=== PATIENT | female | born 1980 | race Caucasian/White ===

== ENCOUNTER 2016-12-10 23:00 | Inpatient (IN) | payer OTHER ==
--- NOTE | ~2016-12-10 | HP ---
Unit #: [id number] #: [id number] Patient: INA SCHROEDER [id number] [place] [address] [id number] I MR#: [id number] NAME: INA SCHROEDER ROOM: [facility] Age: 35 Sex: F Admission Date: 12/10/2016 : 1980 Attending Physician: Nick Shelton M.D. Admitting Physician: Nick Shelton M.D. Primary Care Physician: Primary Care Physician No HISTORY AND PHYSICAL HISTORY OF PRESENT ILLNESS Ina is a 35 year old admitted to [address] [place] [address] because of her abuse of alcohol. PAST MEDICAL HISTORY 1. Long history of alcohol abuse. 2. Morbid obesity. 3. History of goiter. a. Partial thyroidectomy. 4. Hypothyroidism. PAST SURGICAL HISTORY As above. ALLERGIES Penicillin. SOCIAL HISTORY She smokes 1 pack per day. Drinks up to 30 beers on a daily basis. Admits to using marijuana frequently. FAMILY HISTORY Noncontributory. REVIEW OF SYSTEMS CONSTITUTIONAL: No fever or chills. HEENT: Denies any sore throat, ear pain or runny nose. CARDIOVASCULAR: Denies chest pain, irregular heart rhythm or palpitations. CHEST: Denies shortness of breath or cough. No hemoptysis. GASTROINTESTINAL: Denies nausea, vomiting, diarrhea or chronic constipation. ENDOCRINE: Denies history of increased thirst or urination. No recent significant weight loss or gain. GENITOURINARY: Denies dysuria, frequency, or hematuria. SKIN: Denies any rashes. HEMATOLOGIC: Denies history of increased bleeding or bruising. MUSCULOSKELETAL: Denies any hot, swollen joints. No generalized muscle pain. NEUROLOGIC: Denies problems with vision or speech. No frequent, severe headaches. No numbness, tingling or weakness in any extremities. Denies loss of bladder or bowel control. CURRENT MEDICATIONS Unit #: [id number] #: [id number] Patient: INA SCHROEDER 1. Detox protocol. 2. Amitriptyline 10 mg q.h.s. 3. Ropinirole 1 mg q.h.s. 4. Synthroid 0.1 mg daily. 5. Claritin 10 mg daily. 6. Paxil 20 mg b.i.d. 7. Nadolol 20 mg b.i.d. 8. Lasix 40 mg daily. PHYSICAL EXAMINATION GENERAL: Alert, morbidly obese, in no apparent distress. VITAL SIGNS: Blood pressure 144/74, heart rate 80, respirations 16, temperature 98.6. WEIGHT: 334. HEIGHT: 5 feet 10 inches. SKIN: Warm and dry without rash or lesion. HEENT: Normocephalic. TMs not viewed. Oral and nasal passages clear. Conjunctivae clear. PERRLA. EOMs intact. NECK: Supple without lymphadenopathy or thyromegaly. HEART: Regular rate and rhythm without murmur. LUNGS: Clear. ABDOMEN: Soft, nontender. : Not done. EXTREMITIES: No evidence of cyanosis, clubbing or edema. Moves all without focal deficit. NEUROLOGICAL: Grossly within normal limits. Cranial Nerves: II: Visual macario are intact. III, IV AND : Extraocular movements are intact. Pupils are equal, round and reactive to light. V: Facial sensation is grossly normal. VII: Facial movements and expression are normal. VIII: Auditory acuity grossly intact. IX, X: Uvula is midline. Phonation is normal. XI: Patient shrugs shoulders and turns head normally. XII: Tongue protrudes in the midline. Sensory and Motor Function: Sensory and motor sensation is grossly normal. Motor: moves all extremities well. Coordination: Gait is normal. Deep Tendon Reflexes: Intact. IMPRESSION Psychiatric admission. RECOMMENDATIONS PSYCHIATRIC: Per psychiatrist. MEDICAL: See no contraindications to participate in facility's activities. MEDICAL PROGNOSIS Good. MEDICAL CONDITION Stable. Dictated by... Gala Milian P.A.-C. for Reg Wilcox M.D. Unit #: [id number] #: [id number] Patient: INA SCHROEDER EDISON/gaudencio TD: 12/11/2016 22:50 JOB #: [id number] HISTORY AND PHYSICAL X Gala Milian HISTORY AND PHYSICAL
--- NOTE | ~2016-12-10 | PN ---
Unit #: [id number] #: [id number] Patient: INA SCHROEDER [id number] [facility] [address] [place] [address] [id number] I MR#: [id number] NAME: INA SCHROEDER ROOM: [facility] Age: 35 Sex: F Admission Date: 12/10/2016 : 1980 Attending Physician: Nick Shelton M.D. Admitting Physician: Nikc Shelton M.D. Primary Care Physician: Primary Care Physician Corrine CARRILLO NOTES DATE OF SERVICE: 12/11/2016 DISCUSSION Ms. Ina Schroeder is a 35-year-old female, seen on 12/11/2016. The patient was withdrawn, isolative, flat affect. The patient was anxious, nervous, guarded, paranoid. The patient's vital signs; temperature 97.2, respirations 17, blood pressure is 145/92. Complete review of systems is unremarkable. MENTAL STATUS EXAMINATION General appearance; the patient is moderately obese, dressed casually. Attention span and concentration, poor. Oriented in place and person. Mood and affect were sad and dysphoric. Speech, monotone. Thought process, concrete. The patient denied any thoughts of harming self or others, but guarded, paranoid. Recent and remote memory, poor. Insight and judgment, poor. DIAGNOSES 1. Alcohol use disorder, severe. 2. Cannabis abuse disorder, severe. 3. Mood disorder, not otherwise specified. ASSESSMENT AND PLAN Advised to continue with current medication and therapeutic protocol. We will monitor response to medication and make further adjustment of medication. Dictated by... Madeleine Quintero/samantha TD: 12/11/2016 18:42 JOB #: [id number] Unit #: [id number] #: [id number] Patient: INA SCHROEDER ELISSAHENRY PROGRESS NOTES X Nick Shelton MD PROGRESS NOTE
--- NOTE | ~2016-12-10 | DS ---
Unit #: [id number] #: [id number] Patient: TESS SCHROEDER [id number] [place] [address] [id number] I MR#: [id number] NAME: TESS SCHROEDER ROOM: [facility] Age: 35 Sex: F Admission Date: 12/10/2016 : 1980 Discharge Date: 12/13/2016 Attending Physician: Nick Shelton M.D. Primary Care Physician: Primary Care Physician No DISCHARGE SUMMARY REASON FOR ADMISSION Alcohol abuse and depression. DIAGNOSTIC STUDIES LABORATORY RESULTS: Remarkable for potassium 3.4 and albumin 3.3. HOSPITAL COURSE The patient was admitted to inpatient unit on . The patient was treated from 12/10/2016 to 12/12/2016 and responded well. The patient was treated with detox protocol, detox monitoring, group therapy, individual therapy, and medication management. Subsequently, the patient was discharged with a plan to follow up in outpatient program. DISCHARGE MEDICATIONS The patient is on Lasix 40 mg daily for hypertension, Requip 1 mg at bedtime for restlessness of legs, Corgard 20 mg b.i.d. for hypertension, Paxil 20 mg b.i.d. for depression, Elavil 10 mg daily for anxiety, Claritin 10 mg daily for allergies, Protonix 40 mg daily for GERD symptom, and Synthroid 0.1 mg daily for hypothyroidism. DISCHARGE DIAGNOSES Psychiatric: Alcohol use disorder, severe, F10.20; cannabis abuse disorder, moderate; and psychosis, not otherwise specified. Secondary diagnosis: Deferred. Medical diagnoses: Obesity, chronic back pain, chronic hip pain, and restless legs syndrome. Stressors: Psychosocial stressors. DISCHARGE INSTRUCTIONS The patient to follow up in outpatient clinic as per mental health social worker. CONDITION ON DISCHARGE The patient was pleasant and cooperative. Denied any psychotic symptom or any suicidal ideation. PROGNOSIS Guarded. DIET AND ACTIVITY As tolerated. Unit #: [id number] #: [id number] Patient: TESS SCHROEDER Dictated by... Nick Shelton M.D. SZC/ann-mariel TD: 12/13/2016 20:07 JOB #: [id number] DISCHARGE SUMMARY X Nick Shelton MD DISCHARGE SUMMARY
--- NOTE | ~2016-12-10 | PA ---
Unit #: [id number] #: [id number] Patient: TESS SCHROEDER [id number] [facility] [address] [place] [address] [id number] I MR#: [id number] NAME: TESS SCHROEDER ROOM: [facility] Age: 35 Sex: F Admission Date: 12/10/2016 : 1980 Date of Assessment: 12/11/2016 Attending Physician: Nick Shelton M.D. Admitting Physician: Nick Shelton M.D. Primary Care Physician: Primary Care Physician No PSYCHIATRIC ASSESSMENT INFORMANTS The patient reliability, fair informant and chart reliability, good. CHIEF COMPLAINT Detox from alcohol. HISTORY OF PRESENT ILLNESS Ms. Buckley is a 35-year-old female, seen on . The patient presented with the above-mentioned complaint. The patient lives at home with fiance; son, 16; daughter, 12; son, 9. The patient presented for detox. The patient currently denied any suicidal or homicidal ideation or any psychotic symptom. The patient reported auditory hallucination and hearing noises at times. The patient reports that she smells perfume on a woman who in the house. The patient reports that she drinks 30 to 60 beers a day. The patient has not went more than one day without alcohol last year. The patient reports that last drink was yesterday, 24 beers. The patient reports she smokes 2 to 5 joints per day; last use yesterday, 3 joints. The patient scored 21 on CIWA score. The patient needed inpatient admission at this time for psychiatric stabilization. PAST PSYCHIATRIC HISTORY Remarkable for history of outpatient treatment, details unknown at this time. FAMILY AND SOCIAL HISTORY The patient lives with her family, has a good support system. No history of any abuse. MEDICAL HISTORY Remarkable for obesity, restless legs, and chronic hip and back pain. MEDICATION HISTORY None. ALLERGIES No known drug allergies. SUBSTANCE ABUSE HISTORY The patient reported tobacco use, age of onset 9; alcohol, age of onset 26; and marijuana, age of onset 12. The patient reported drinking 30 to 60 beers. No history of any HIV, hepatitis, or IV drug use. No history of any blackouts, but currently reporting tremor, poor appetite, diarrhea, and hallucination. Unit #: [id number] #: [id number] Patient: TESS SCHROEDER REVIEW OF SYSTEMS HEENT: Eyes, clear. Ears, nose, mouth, and throat; clear. CARDIOVASCULAR: Unremarkable. RESPIRATORY: Unremarkable. GI: Unremarkable. : Unremarkable. SKIN: Unremarkable. LYMPH NODE: Unremarkable. NEUROLOGIC: Unremarkable. ENDOCRINE: Unremarkable. HEMATOLOGIC: Unremarkable. ALLERGIC/IMMUNOLOGIC: Unremarkable. MUSCULOSKELETAL: Muscle strength and tone, no atrophy or abnormal movement. Gait normal. MENTAL STATUS EXAMINATION CONSTITUTIONAL: Measurement of vital signs; temperature 97.2, heart rate 97, respiratory rate 17, blood pressure 144/75, height 5 feet 10 inches, and weight 334 pounds. GENERAL APPEARANCE: The patient dressed casually. The patient did not show any facial deformity. MUSCULOSKELETAL: Please see above. PSYCHIATRIC EXAMINATION Description of speech; regular rate, normal volume, and normal articulation. Description of thought process, goal directed. Description of association, circumstantial. Description of abnormal psychotic thinking; reported hallucination as mentioned above, mood lability, sad, depressed, and substance abuse. Description of the patient's judgment: Concerning everyday activity, poor. Social situation, poor. Concerning psychiatric condition, poor. Complete mental status examination; oriented in time, place, and person. Recent and remote memory, fair. Attention span and concentration, fair. Language, able to name object and repeat phrases. Fund of knowledge, aware of current event and passive vocabulary intact. Mood and affect, sad and dysphoric. Insight and judgment, fair to poor. ASSETS AND LIABILITIES Assets, the patient is articulate and able to take care of her ADL. Liability, history of substance abuse and depression. ADMITTING DIAGNOSES Psychiatric: Alcohol use disorder, severe, F10.20; cannabis abuse, moderate to severe, F12.20; and psychosis, not otherwise specified, F29.0. Secondary diagnosis: Deferred. Medical diagnoses: Obesity, chronic back pain, hip pain, and restless legs syndrome. Stressors: Psychosocial stressors. PSYCHIATRIC PLAN AND TREATMENT GOAL AND DISCHARGE PLAN 1. Advised to admit the patient on the inpatient unit. Provide safe, supportive, and structured environment. 2. Ordered labs; CBC, CMP, UA, and UDS. Unit #: [id number] #: [id number] Patient: TESS SCHROEDER 3. Detox protocol and detox monitoring. 4. Plan to continue with current treatment, group therapy, individual therapy, and medication management. If needed, consider medication for psychosis and depression. The patient to be monitored closely. TREATMENT GOAL To attain euthymic mood, gain insight into her problem, and learn coping skills. DISCHARGE PLAN Plan to stabilize the patient and consider followup in outpatient program. ESTIMATED LENGTH OF STAY 3 to 5 days. Dictated by... Nick Shelton M.D. JAM/samantha TD: 12/11/2016 19:01 JOB #: [id number] PSYCHIATRIC ASSESSMENT X Nick Shelton MD PSYCHIATRIC ASSESSMENT
--- NOTE | ~2016-12-10 | PN ---
Unit #: [id number] #: [id number] Patient: INA SCHROEDER [id number] [facility] [address] [place] [address] [id number] I MR#: [id number] NAME: INA SCHROEDER ROOM: [facility] Age: 35 Sex: F Admission Date: 12/10/2016 : 1980 Attending Physician: Nick Shelton M.D. Admitting Physician: Nick Shelton M.D. Primary Care Physician: Primary Care Physician Corrine BONILLA PROGRESS NOTES DATE OF SERVICE: 12/12/2016 DISCUSSION Ina Schroeder is a 35-year-old female, seen on 12/12/2016. The patient interviewed, chart reviewed, and obtained information from nursing staff. The patient was compliant and cooperative. Mood is sad, dysphoric, flat affect, guarded, but reports making progress. REVIEW OF SYSTEMS Complete review of systems unremarkable. MENTAL STATUS EXAMINATION General appearance, the patient dressed casually, withdrawn, isolative, guarded. Attention span and concentration, fair. Oriented in place and person. Mood and affect, sad, and depressed. Speech, monotone. Thought process, concrete. The patient denied any thoughts of harming self or others, but guarded, withdrawn, isolative. Recent and remote memory, poor. Insight and judgment, poor. Vital signs, temperature 98.2, pulse 90, respirations 21, blood pressure 120/60. Recent and remote memory, poor. Insight and judgment, poor. DIAGNOSES 1. Mood disorder, not otherwise specified. 2. Alcohol use disorder, severe. ASSESSMENT AND PLAN Advised to continue with current medication and therapeutic protocol. We will monitor response to medication and make further adjustment of medication. Dictated by... Madeleine Quintero/samantha TD: 12/13/2016 05:13 JOB #: [id number] Unit #: [id number] #: [id number] Patient: INA SCHROEDER PROGRESS NOTES X Nick Shelton MD PROGRESS NOTE
[2016-12-11 10:17] LABS: BASOPHIL% 0.1 % (0-2.5); EOSINOPHIL# 0.2 X10e3 (0-0.7); EOSINOPHIL% 2.5 % (0.0-7.0); HEMATOCRIT 37.3 % (35.0-45.0); HEMOGLOBIN 12.4 gm/dL (12.0-16.0); LYMPHOCYTE# 2.3 X10e3 (1.0-3.5); LYMPHOCYTE% 38.4 % (17.0-45.0); MEAN CORPUSCULAR HEMOGLOBIN 30.6 PG (28-34); MEAN CORPUSCULAR HGB CONC 33.3 g/dL (30-36); MEAN PLATELET VOLUME 9.6 FL (6.5-11.5); MONOCYTE# 0.4 X10e3 (0-1.0); MONOCYTE% 5.8 % (3.0-12.0); NEUTROPHIL# 3.2 X10e3 (1.5-7.1); NEUTROPHIL% 53.2 % (40-75); PLATELET COUNT 154 X10e3 (140-420); RED BLOOD COUNT 4.05 X10e (3.90-5.30); RED CELL DISTRIBUTION WIDTH 14.4 % (11.0-15.5); WHITE BLOOD COUNT 6.1 X10e3 (4.0-10.5)
[2016-12-11 10:26] LABS: DIFF IND NO
[2016-12-11 10:33] LABS: ALBUMIN SERUM 3.3 g/dL (3.5-5.0); ALKALINE PHOSPHATASE 86 U/L (32-92); ALT (SGPT) 25 U/L (10-40); AST (SGOT) 26 U/L (10-42); BILIRUBIN,TOTAL 0.4 mg/dL (0.2-2.0); BLOOD UREA NITROGEN 9 mg/dL (9-23); CALCIUM SERUM 8.9 mg/dL (8.4-10.2); CARBON DIOXIDE 28 mmol/L (22-31); CHLORIDE 106 mmol/L (100-111); CREATININE SERUM 0.6 mg/dL (0.6-1.4); GLOM FILT RATE Estimated ABOVE60 mL/min (>60); GLUCOSE FASTING 99 mg/dL (70-110); POTASSIUM 3.4 mmol/L (3.5-5.1); PROTEIN TOTAL SERUM 6.5 g/dL (6.0-8.3); SODIUM 140 mmol/L (135-145)
== END 2016-12-13 01:42 | disposition home or self-care (01) | DRG 897 ==
LOC: P1S 23:00
PROVIDERS: Psychiatry & Neurology Psychiatry
PROC: HZ2ZZZZ Detoxification Services for Substance Abuse Treatment (ICD-10-PCS; principal; 2016-12-10)
DX: F10.20 Alcohol dependence, uncomplicated (principal); E66.01 Morbid (severe) obesity due to excess calories; F12.20 Cannabis dependence, uncomplicated; E03.9 Hypothyroidism, unspecified; F17.210 Nicotine dependence, cigarettes, uncomplicated
CPT/HCPCS: 80053; 85025; 86592

== ENCOUNTER 2017-05-18 20:16 | Inpatient (IN) | payer OTHER ==
[~2017-05-18] VITALS: Ht 172.7 cm; Wt 171.5 kg
--- NOTE | ~2017-05-18 | PN ---
Unit #: [id number] #: [id number] Patient: INA SCHROEDER [id number] [facility] [address] [place] [address] [id number] MR#: [id number] NAME: INA SCHROEDER ROOM: [facility] Age: 36 Sex: F Admission Date: 05/19/2017 : 1980 Attending Physician: Nick Shelton M.D. Admitting Physician: Nick Shelton M.D. Primary Care Physician: Primary Care Physician Corrine BONILLA PROGRESS NOTES DATE 05/20/2017 DISCUSSION Ina Schroeder is a 36-year-old female, seen on 05/20/2017. The patient interviewed, chart reviewed, and obtained information from the nursing staff. The patient was compliant and cooperative. Mood labile. The patient reports feeling better. Still having detox symptoms. REVIEW OF SYSTEMS Complete review of systems unremarkable. MENTAL STATUS EXAMINATION General appearance: Patient dressed casually. Attention span and concentration, fair. Oriented in time, place, and person. Mood and affect, labile. Speech, monotone. Thought process, concrete, sad, depressed, withdrawn, isolative. Recent and remote memory, poor. Insight and judgment, poor. DIAGNOSES 1. Alcohol use disorder, severe. 2. Sedative-hypnotic use disorder, severe. 3. Cannabis abuse disorder, severe. 4. Mood disorder, NOS. ASSESSMENT/PLAN Advised to continue with the current medication and therapeutic protocol, and if needed consider further adjustment of medication. Dictated by... Madeleine Quintero/swapna TD: 05/21/2017 05:42 JOB #: [id number] Unit #: [id number] #: [id number] Patient: INA SCHROEDER PROGRESS NOTES Page 1 of 1 X Nick Shelton MD PROGRESS NOTE
--- NOTE | ~2017-05-18 | PA ---
Unit #: [id number] #: [id number] Patient: INA BENNETT [id number] [facility] [address] [place] [address] [id number] MR#: [id number] NAME: INA BENNETT ROOM: [facility] Age: 36 Sex: F Admission Date: 05/19/2017 : 1980 Date of Assessment: Attending Physician: Nick Shelton M.D. Admitting Physician: Nick Shelton M.D. Primary Care Physician: Primary Care Physician No PSYCHIATRIC ASSESSMENT INFORMANTS The patient reliability, fair informant and chart reliability, good. CHIEF COMPLAINT Here for detox. HISTORY OF PRESENT ILLNESS Ms. Ina Bennett is a 36-year-old female, presented with the above-mentioned complaint. The patient reports that she lives at home with stiven's son, 16; daughter, 13, and son, 10. The patient reports she has been tired of life and also has been court ordered for a 30-day program due to DUI and possession of contraband. The patient reported that she has been drinking 36 to 40 beers for the last year. The patient reported brother . The patient reported that the last drink was 20 to 25 beers last night. The patient reported being prescribed 3 mg of Klonopin per day. For the last 3 years, abusing medication. In the last 6 months, the patient reported that she has been taking 6 mg a day. The patient also reported smoking marijuana 5 times a day, half a pack of cigarette. The patient currently scored 13 on the CIWA score. Restless, anxious, sweaty, and tremors. Denied any thoughts or plans to harm self or others. Denied any hallucination. Needing inpatient admission at this time for psychiatric stabilization. PAST PSYCHIATRIC HISTORY Remarkable for history of detox at [facility] in 2017 and inpatient at [facility]. FAMILY HISTORY AND SOCIAL HISTORY The patient has a good support system. No history of abuse. Family psychiatric illness is remarkable for history of addiction in brother, mother, and father. History of legal problems, currently on probation until 2019 due to DUI and possession of contraband. MEDICAL HISTORY Remarkable for morbid obesity, hypertension, and back problems. MEDICATION HISTORY None. ALLERGIES No known drug allergies. SUBSTANCE ABUSE HISTORY Unit #: [id number] #: [id number] Patient: INA BENNETT Tobacco use, age of onset 9; alcohol, age of onset 20; marijuana, age of onset 12; benzodiazepine, age of onset 33. Longest period of sobriety 1 day. Last period of sobriety a week ago. The patient reported history of withdrawal symptoms such as nervousness, restlessness, sleep problem, and tremor. Denied any use of IV drug use or blackouts. REVIEW OF SYSTEMS HEENT: Eyes, clear. Ears, nose, mouth, and throat; clear. CARDIOVASCULAR: Unremarkable. RESPIRATORY: Unremarkable. GI: Unremarkable. : Unremarkable. SKIN: Unremarkable. LYMPH NODE: Unremarkable. NEUROLOGIC: Unremarkable. ENDOCRINE: Unremarkable. HEMATOLOGIC: Unremarkable. ALLERGIC/IMMUNOLOGIC: Unremarkable. MUSCULOSKELETAL: Muscle strength and tone, no atrophy or abnormal movement. Gait normal. MENTAL STATUS EXAMINATION CONSTITUTIONAL: Measurement of vital signs; temperature 98.6, heart rate 85, respiratory rate 16, and blood pressure 109/73. Height 5 feet 8 inches and weight 378 pounds. GENERAL APPEARANCE: The patient dressed casually. The patient did not show any facial deformity. MUSCULOSKELETAL: Please see above. PSYCHIATRIC EXAMINATION Description of speech; slow in volume and rate. Sleepy and drowsy. Description of the patient's thought process, goal directed. Description of association, intact. Description of abnormal psychotic thinking; the patient denied any hallucination or delusions, but depression and substance abuse. Description of the patient's judgment: Concerning everyday activity, poor. Social situation, poor. Concerning psychiatric condition, poor. Complete mental status examination; oriented in time, place, and person. Recent and remote memory, fair. Attention span and concentration, fair. Language, able to name object and repeat phrases. Fund of knowledge, aware of current event and passive vocabulary intact. Mood and affect, sad and dysphoric. Insight and judgment, fair to poor. ASSETS AND LIABILITIES Assets, the patient is articulate and able to take care of her ADL. Liability, history of depression and substance abuse. ADMITTING DIAGNOSES Psychiatric: Alcohol use disorder, severe, F10.20; sedative hypnotic use disorder, severe, F13.20; cannabis abuse disorder, moderate, F12.20; and mood disorder, not otherwise specified, F32.9. Secondary diagnosis: Deferred. Medical diagnoses: Obesity, chronic back pain, chronic hip pain, and restless legs syndrome. Unit #: [id number] #: [id number] Patient: INA BENNETT Stressors: Psychosocial stressors. PSYCHIATRIC PLAN AND TREATMENT GOAL AND DISCHARGE PLAN 1. Advised to admit the patient on the inpatient unit. Provide safe, supportive, and structured environment. 2. Ordered labs; CBC, CMP, UA, and UDS. 3. Detox protocol and detox monitoring. If needed, consider a trial of SSRI. The patient to attend all the programing, group therapy, individual therapy, and chemical dependency group. Treatment goal to attain euthymic mood, gain insight into her problem, and learn coping skills. DISCHARGE PLAN Plan to stabilize the patient and consider followup in outpatient program. ESTIMATED LENGTH OF STAY 5 days. Dictated by... Nick Shelton M.D. JAM/samantha TD: 05/19/2017 16:09 JOB #: [id number] PSYCHIATRIC ASSESSMENT Page 1 of 1 X Nick Shelton MD X PSYCHIATRIC ASSESSMENT
--- NOTE | ~2017-05-18 | HP ---
Unit #: [id number] #: [id number] Patient: INA SCHROEDER [id number] [place] [address] [id number] MR#: [id number] NAME: INA SCHROEDER ROOM: [facility] Age: 36 Sex: F Admission Date: 05/19/2017 : 1980 Attending Physician: Nick Shelton M.D. Admitting Physician: Nick Shelton M.D. Primary Care Physician: Primary Care Physician No HISTORY AND PHYSICAL HISTORY OF PRESENT ILLNESS Ina is a 36 year old admitted to [facility] because of her polysubstance abuse which includes alcohol and benzodiazepines. PAST MEDICAL HISTORY 1. Long history of alcohol abuse. 2. History of illicit substance abuse to include benzodiazepines. 3. Morbid obesity. 4. Hypothyroidism. 5. History of goiter. a. Partial thyroidectomy. PAST SURGICAL HISTORY 1. As above. 2. Tubal ligation. ALLERGIES Penicillin. SOCIAL HISTORY Smokes less than 1 pack per day. Drinks a case of beer on a daily basis. Admits to abusing benzodiazepines. FAMILY HISTORY Medically noncontributory. REVIEW OF SYSTEMS CONSTITUTIONAL: No fever or chills. HEENT: Denies any sore throat, ear pain or runny nose. CARDIOVASCULAR: Denies chest pain, irregular heart rhythm or palpitations. CHEST: Denies shortness of breath or cough. No hemoptysis. GASTROINTESTINAL: Denies nausea, vomiting, diarrhea or chronic constipation. ENDOCRINE: Denies history of increased thirst or urination. No recent significant weight loss or gain. GENITOURINARY: Denies dysuria, frequency, or hematuria. SKIN: Denies any rashes. HEMATOLOGIC: Denies history of increased bleeding or bruising. MUSCULOSKELETAL: Denies any hot, swollen joints. No generalized muscle pain. NEUROLOGIC: Denies problems with vision or speech. No frequent, severe headaches. No numbness, tingling or weakness in any extremities. Denies loss of bladder or bowel control. Unit #: [id number] #: [id number] Patient: INA SCHROEDER CURRENT MEDICATIONS 1. Detox protocol. 2. Paxil 20 mg daily. 3. Methocarbamol 750 mg daily. 4. Ropinirole 1 mg q.h.s. 5. Nadolol 20 mg b.i.d. 6. BuSpar 5 mg b.i.d. 7. Lasix 40 mg daily. 8. Synthroid 0.125 mg daily. PHYSICAL EXAMINATION GENERAL: Alert, morbidly obese, in no apparent distress. VITAL SIGNS: Blood pressure 110/72, heart rate 80, respirations 16, temperature 98.6. WEIGHT: 378. HEIGHT: 5 feet 8 inches. SKIN: Warm and dry without rash or lesion. HEENT: Normocephalic. TMs not viewed. Oral and nasal passages clear. Conjunctivae clear. PERRLA. EOMs intact. NECK: Supple without lymphadenopathy or thyromegaly. HEART: Regular rate and rhythm without murmur. LUNGS: Clear. ABDOMEN: Soft, nontender. : Not done. EXTREMITIES: No evidence of cyanosis, clubbing or edema. Moves all without focal deficit. NEUROLOGICAL: Grossly within normal limits. Cranial Nerves: II: Visual macario are intact. III, IV AND : Extraocular movements are intact. Pupils are equal, round and reactive to light. V: Facial sensation is grossly normal. VII: Facial movements and expression are normal. VIII: Auditory acuity grossly intact. IX, X: Uvula is midline. Phonation is normal. XI: Patient shrugs shoulders and turns head normally. XII: Tongue protrudes in the midline. Sensory and Motor Function: Sensory and motor sensation is grossly normal. Motor: moves all extremities well. Coordination: Gait is normal. Deep Tendon Reflexes: Intact. IMPRESSION Psychiatric admission. RECOMMENDATIONS PSYCHIATRIC: Per psychiatrist. MEDICAL: 1. See no contraindication to participate in facility's activities. 2. Detox per protocol. 3. Check TSH. MEDICAL PROGNOSIS Good. MEDICAL CONDITION Stable. Unit #: [id number] #: [id number] Patient: INA SCHROEDER Dictated by... Gala Milian P.A.-C. for Madeleine King/carlos TD: 05/19/2017 18:07 JOB #: [id number] HISTORY AND PHYSICAL Page 1 of 1 X Gala Milian HISTORY AND PHYSICAL
--- NOTE | ~2017-05-18 | DS ---
Unit #: [id number] #: [id number] Patient: TESS SCHROEDER [id number] [place] [address] [id number] MR#: [id number] NAME: TESS SCHROEDER ROOM: [facility] Age: 36 Sex: F Admission Date: 05/19/2017 : 1980 Discharge Date: 05/22/2017 Attending Physician: Nick Shelton M.D. Primary Care Physician: Primary Care Physician No DISCHARGE SUMMARY REASON FOR ADMISSION Detox DIAGNOSTIC STUDIES LABORATORY DATA: Urine drug screen positive for benzodiazepine, marijuana. HOSPITAL COURSE Patient was admitted to inpatient unit on 05/19/2017 and discharged on 05/22/2017. Patient was treated with group therapy, individual therapy, medication management. Patient was responsive to treatment and showed improvement. Subsequently, patient was discharged with a plan to followup in outpatient program. DISCHARGE MEDICATIONS None. Patient to continue with her Synthroid, Claritin, Protonix, Elavil, Robaxin, BuSpar, Requip, and Corgard, Paxil 20 mg daily, Lasix. Paxil is for depression. Elavil for pain. BuSpar for anxiety. DISCHARGE DIAGNOSES PSYCHIATRIC 1. Alcohol use disorder, severe, F10.20. 2. Sedative hypnotic use disorder, severe, F13.20. 3. Cannabis abuse moderate F12.20. 4. Mood disorder NOS F32.9. SECONDARY DIAGNOSIS Deferred. MEDICAL DIAGNOSIS 1. Obesity. 2. Chronic back pain. 3. Chronic hip pain. 4. Restless leg syndrome. STRESSORS Psychosocial stress. INSTRUCTION TO PATIENT Patient to followup in outpatient clinic as per school social worker. CONDITION AT DISCHARGE Unit #: [id number] #: [id number] Patient: TESS SCHROEDER Patient was cooperative . PROGNOSIS Guarded. DIET AND ACTIVITY As tolerated. Dictated by... Madeleine Quintero/ewelina TD: 05/23/2017 21:32 JOB #: [id number] DISCHARGE SUMMARY Page 1 of 1 X Nick Shelton MD DISCHARGE SUMMARY
--- NOTE | ~2017-05-18 | PN ---
Unit #: [id number] #: [id number] Patient: INA SCHROEDER [id number] [facility] [address] [place] [address] [id number] MR#: [id number] NAME: INA SCHROEDER ROOM: [facility] Age: 36 Sex: F Admission Date: 05/19/2017 : 1980 Attending Physician: Nick Shelton M.D. Admitting Physician: Nick Shelton M.D. Primary Care Physician: Primary Care Physician Corrine BONILLA PROGRESS NOTES DATE 05/21/2017 DISCUSSION Ms. Ina Schroeder is a 36-year-old female, seen on 05/21/2017. The patient interviewed, chart reviewed, and obtained information from the nursing staff. The patient currently in detox and reports feeling better, decrease in anxiety, anxious, nervous. REVIEW OF SYSTEMS Complete review of systems unremarkable. MENTAL STATUS EXAMINATION General appearance: Patient dressed casually. Attention span and concentration, fair. Oriented in time, place, and person. Mood and affect, labile. Speech, monotone. Thought process, concrete. The patient denied any thoughts of harming self or others. Recent and remote memory, poor. Insight and judgment, poor. DIAGNOSES 1. Alcohol use disorder, severe. 2. Sedative-hypnotic use disorder, severe. 3. Cannabis abuse disorder. 4. Mood disorder, NOS. ASSESSMENT/PLAN Advised to continue with the current medication and therapeutic protocol, and if needed consider further adjustment of medication. Dictated by... Madeleine Quintero/swapna TD: 05/22/2017 05:37 JOB #: [id number] Unit #: [id number] #: [id number] Patient: INA SCHROEEDR PROGRESS NOTES Page 1 of 1 X Nick Shelton MD PROGRESS NOTE
[2017-05-19 09:41] LABS: BASOPHIL% 0.2 % (0-2.5); EOSINOPHIL# 0.2 X10e3 (0-0.7); EOSINOPHIL% 2.6 % (0.0-7.0); HEMATOCRIT 35.8 % (35.0-45.0); HEMOGLOBIN 11.7 gm/dL (12.0-16.0); LYMPHOCYTE# 2.3 X10e3 (1.0-3.5); LYMPHOCYTE% 35.6 % (17.0-45.0); MEAN CELL VOLUME 86.7 FL (83-96); MEAN CORPUSCULAR HEMOGLOBIN 28.4 PG (28-34); MEAN CORPUSCULAR HGB CONC 32.7 g/dL (30-36); MEAN PLATELET VOLUME 10.1 FL (6.5-11.5); MONOCYTE# 0.4 X10e3 (0-1.0); MONOCYTE% 5.9 % (3.0-12.0); NEUTROPHIL# 3.6 X10e3 (1.5-7.1); NEUTROPHIL% 55.7 % (40-75); PLATELET COUNT 156 X10e3 (140-420); RED BLOOD COUNT 4.13 X10e (3.90-5.30); RED CELL DISTRIBUTION WIDTH 16.4 % (11.0-15.5); WHITE BLOOD COUNT 6.5 X10e3 (4.0-10.5)
[2017-05-19 09:44] LABS: DIFF IND NO
[2017-05-19 10:42] LABS: ALBUMIN SERUM 3.4 g/dL (3.5-5.0); BILIRUBIN,TOTAL 0.2 mg/dL (0.2-2.0); BUN/CREATININE RATIO 13.33; CALCIUM SERUM 8.6 mg/dL (8.4-10.2); CREATININE SERUM 0.6 mg/dL (0.6-1.4); GLOM FILT RATE Estimated 117.3 mL/min (>60); POTASSIUM 3.7 mmol/L (3.5-5.1); PROTEIN TOTAL SERUM 6.8 g/dL (6.0-8.3)
[2017-05-21 10:11] LABS: URINE APPEARANCE HAZY; URINE BILIRUBIN NEG (NEG); URINE BLOOD NEG (NEG); URINE COLOR YELLOW; URINE GLUCOSE NORM (NORM); URINE KETONE NEG (NEG); URINE LEUKOCYTE ESTERASE NEG (NEG); URINE NITRATE NEG (NEG); URINE PROTEIN NEG (NEG); URINE UROBILINOGEN NORM (NORM)
[2017-05-21 10:59] LABS: AMPHETAMINE NEG (NEG); BARBITURATES NEG (NEG); BENZODIAZEPINES POS (NEG); COCAINE NEG (NEG); MARIJUANA POS (NEG); OPIATES NEG (NEG); TRICYCLIC ANTIDEPRESSANTS POS (NEG); U METHADONE NEG (NEG)
== END 2017-05-22 13:00 | DRG 897 ==
LOC: P1E 05-19 00:33
PROVIDERS: Psychiatry & Neurology Psychiatry
PROC: HZ2ZZZZ Detoxification Services for Substance Abuse Treatment (ICD-10-PCS; principal; 2017-05-19)
DX: F10.20 Alcohol dependence, uncomplicated (principal); F13.20 Sedative, hypnotic or anxiolytic dependence, uncomplicated; F12.20 Cannabis dependence, uncomplicated; F32.9 Major depressive disorder, single episode, unspecified; E66.9 Obesity, unspecified; G25.81 Restless legs syndrome
CPT/HCPCS: 80053; 80307; 81003; 84703; 85025; 86592